=== PATIENT | female | born 1955 | race Caucasian/White ===

== ENCOUNTER 2019-11-10 05:01 | Emergency (ER) | payer OTHER ==
[~2019-11-10] VITALS: Ht 172.7 cm; Wt 97.7 kg
--- NOTE | 2019-11-10 05:04 | PHYS DOC ---
Adult General Chief Complaint Chief Complaint: ".. I woke up like I was going to vomit or have a diarrhea... on the way to bathroom .. I guess I passed out.. and hit my head on the right side.. I am still having feelings of nausea and or diarrhea...I didnt get my flu shot this year.. now I wish I had... HPI HPI Patient is a 64 year old female who presents with above hx and complaints of abdomen pain and nausea. Complaints of malaise. Patient awakened acutely with feelings of nausea and possible onset of diarrhea. Patient on the way to the bathroom had a syncopal episode with collapse striking the right side of face and head. Patient complaining of headache, neck pain, nausea, abdomen pain, and dizziness. Patient did not receive flu vaccination this season. Recent travel to [place] 1 week ago. Patient states she feels that if she is developing the flu. Patient denies other injury other than the contusions to the right side of face and head. Patient denies any specific ill contacts. Patient normally follows at [facility]. (JONATHAN MENDIOLA MD) Review of Systems Review of Systems Constitutional: Some subjective complaints of fever Eyes: Denies change in visual acuity, redness, or eye pain [] HENT: Denies nasal congestion or sore throat [] Respiratory: Denies cough or shortness of breath [] Cardiovascular: No additional information not addressed in HPI [] GI: Complaints of generalized abdominal pain, nausea,. Denies vomiting, bloody stools or diarrhea []. Patient states she does feel like she may have a diarrhea episode : Denies dysuria or hematuria [] Musculoskeletal: Denies back pain or joint pain [] Integument: Denies rash or skin lesions [] Neurologic: Complaints of headache. Denies focal weakness or sensory changes [] Pt. does complain of dizziness Endocrine: Denies polyuria or polydipsia [] All other systems were reviewed and found to be within normal limits, except as documented in this note. (JONATHAN MENDIOLA MD) Family History Family History Noncontributory to presentation (JONATHAN MENDIOLA MD) Current Medications Current Medications See nursing for home meds (JONATHAN MENDIOLA MD) Allergies Allergies Allergic to Tylenol and oxycodone (JONATHAN MENDIOLA MD) Physical Exam Physical Exam Constitutional: Moderate acute distress, non-toxic appearance. [] HENT: Normocephalic, contusions to the right side of face and head, bilateral external ears normal, oropharynx moist, no oral exudates, nose normal. [] Eyes: PERRLA, EOMI, conjunctiva normal, no discharge. Glasses Neck: Normal range of motion, mild upper neck tenderness, supple, no stridor. [] Cardiovascular:Heart rate regular rhythm, no murmur [] Lungs & Thorax: Bilateral breath sounds clear to auscultation [] Abdomen: Bowel sounds hyperactive, soft, generalized tenderness, no masses, no pulsatile masses. [] No specific area of rebound. Skin: Warm, dry, no erythema, no rash. [] Back: No tenderness, no CVA tenderness. [] Extremities: No tenderness, no cyanosis, no clubbing, ROM intact, no edema. [] Neurologic: Alert and oriented X 3, moves extremities on request, has distal sensory function, no focal deficits noted. [] Psychologic: Affect anxious, judgement normal, mood normal. [] (JONATHAN MENDIOLA MD) EKG EKG [] (JONATHAN MENDIOLA MD) Radiology/Procedures Radiology/Procedures [] (JONATHAN MENDIOLA MD) Impressions: PROCEDURE: CT ANGIOGRAPHY CHEST ABDOMEN Examination: CT ANGIOGRAPHY CHEST ABDOMEN History: Diarrhea, epigastric pain, syncope, dizziness Comparison/Correlation: 11/10/2019 two-view chest x-ray exam Findings: Axial images of the chest were obtained following IV contrast according to pulmonary arteriography protocol. Maximum intensity projection images were provided. Axial images of the abdomen were obtained following IV contrast. Sagittal and coronal reformatted images are provided. Patchy infiltrates are present throughout the right upper lobe. No pleural or pericardial effusion. No dense consolidation. No enlarged thoracic lymph nodes. Small hiatal hernia is present. Small hiatal hernia is present. Caudate lobe cyst measuring 1.2 cm diameter is present with no need for follow-up. Spleen, pancreas, adrenal glands, and kidneys are unremarkable. No ascites. No enlarged abdominal lymph nodes. Nonenlarged mesenteric lymph nodes are present. Severe disc space narrowing from L3 to L5 is present. Aortic morphology is unremarkable. Impression: No pulmonary arterial thromboembolic disease. Patchy infiltrates involving the right upper lobe. Small hiatal hernia. PQRS Compliance Statement: One or more of the following individualized dose reduction techniques were utilized for this examination: 1. Automated exposure control 2. Adjustment of the mA and/or kV according to patient size 3. Use of iterative reconstruction technique Electronically signed by: Andre Araujo MD (11/10/2019 9:07 AM) [id number] DICTATED AND SIGNED BY: ANDRE ARAUJO MD DATE: 11/10/19 09 CC: MARY JO MANZANO Jr., DO; JOSEF SIDDIQI DO; JONATHAN MENDIOLA MD ~ (MARY JO MANZANO Jr., DO) Course & Med Decision Making Course & Med Decision Making Pertinent Labs and Imaging studies reviewed. (See chart for details) Pt. endorses Dr. Parker at shift change-0800 hrs. he will make disposition Impression: 1. Abdomen Pain 2. Syncope 3. Head and Face contusion Rt side 4. Elevated D-dimer 1.52 5. Rt. Upper Lobe Infiltrate [] (JONATHAN MENDIOLA MD) Dragon Disclaimer Dragon Disclaimer This electronic medical record was generated, in whole or in part, using a voice recognition dictation system. (JONATHAN MENDIOLA MD) Departure Departure: Impression: Primary Impression: Vasovagal syncope Additional Impressions: Closed head injury Facial contusion Infiltrate of upper lobe of right lung present on imaging study Disposition: 01 HOME, SELF-CARE Condition: STABLE Referrals: JOSEF SIDDIQI DO (PCP) Patient Instructions: Facial or Scalp Contusion, Head Injury, Adult, Pneumonia, Adult, Syncope Scripts Amoxicillin/Potassium Clav (AUGMENTIN 875-125 TABLET) 1 Each Tablet 1 TAB PO BID for infection for 10 Days, #20 TAB 0 Refills Prov: MARY JO MANZANO Jr., DO 11/10/19 Dragon Disclaimer This chart was dictated in whole or in part using Voice Recognition software in a busy, high-work load, and often noisy Emergency Department environment. It may contain unintended and wholly unrecognized errors or omissions. (JONATHAN MENDIOLA MD) Problem Qualifiers Additional Impressions: Closed head injury Encounter type: initial encounter Qualified Codes: S09.90XA - Unspecified injury of head, initial encounter Facial contusion Encounter type: initial encounter Qualified Codes: S00.83XA - Contusion of other part of head, initial encounter JONATHAN MENDIOLA MD Nov 10, 2019 05:04 MARY JO MANZANO Jr., DO Nov 10, 2019 09:31
[2019-11-10] MEDS ORDERED: IV RINGERS SOLUTION,LACTATED 1,000 ML IV SCH (05:30)
[2019-11-10] MEDS ORDERED: ONDANSETRON PF 4 MG/2 ML VIAL. IVP ONE (05:45)
--- NOTE | 2019-11-10 05:52 | EKG ---
[address] [address] Test Date: 2019-11-10 Test Time: 05:47:11 Pat Name: JENNIFER LANCASTER Department: Room: Gender: F [employer]: : [id number] Requested By: JONATHAN MENDIOLA Order Number: [id number] Reading MD: Measurements Intervals [place] Rate: 98 P: 3 CT: 196 QRS: 14 QRSD: 82 T: 46 QT: 336 QTc: 431 Interpretive Statements SINUS RHYTHM INCOMPLETE RIGHT BUNDLE BRANCH BLOCK QRS(T) CONTOUR ABNORMALITY CONSIDER ANTEROSEPTAL MYOCARDIAL DAMAGE POSSIBLY ABNORMAL ECG RI6.01 No previous ECG available for comparison
[2019-11-10 06:13] LABS: BASO % 0 % (0-3); EOS # 0.1 x10^3/uL (0.0-0.7); EOS % 1 % (0-3); HEMATOCRIT 46.1 % (36.0-47.0); HEMOGLOBIN 15.5 g/dL (12.0-15.5); LYMPH # 0.6 x10^3/uL (1.0-4.8); LYMPH % 7 % (24-48); MEAN CORPUSCULAR HEMOGLOBIN 30 pg (25-35); MEAN CORPUSCULAR HGB CONC 34 g/dL (31-37); MEAN CORPUSCULAR VOLUME 90 fL (79-100); MONO # 0.5 x10^3/uL (0.0-1.1); MONO % 6 % (0-9); NEUT # 7.7 x10^3uL (1.8-7.7); NEUT % 87 % (31-73); PLATELET COUNT 195 x10^3/uL (140-400); RED BLOOD COUNT 5.12 x10^6/uL (3.50-5.40); RED CELL DISTRIBUTION WIDTH 13.4 % (11.5-14.5); WHITE BLOOD COUNT 8.9 x10^3/uL (4.0-11.0)
[2019-11-10 06:20] LABS: CREATININE 0.9 mg/dL (0.6-1.0); GFR 63.4; POTASSIUM 3.9 mmol/L (3.5-5.1)
[2019-11-10 06:29] VITALS: BP 129/77
[2019-11-10 06:32] LABS: ALBUMIN 3.3 g/dL (3.4-5.0); DIRECT BILIRUBIN 0.1 mg/dL (0.0-0.2); MAGNESIUM 1.8 mg/dL (1.8-2.4); TOTAL BILIRUBIN 0.3 mg/dL (0.2-1.0); TOTAL PROTEIN 6.5 g/dL (6.4-8.2)
--- NOTE | 2019-11-10 06:38 | RAD ---
CT HEAD AND CERVICAL SPINE WO Date: 11/10/2019 5:29 AM Clinical Indication: Syncope, fall, pain Comparison: None. Technique: 5 mm axial tomographic images were obtained of the head without contrast. These were viewed on brain and bone windows. Noncontrast CT of the cervical spine was performed. Sagittal and coronal reformats were performed and evaluated. One or more of the following dose reduction techniques were utilized: Automated exposure control (AEC), Adjustment of mA and/or kV according to patient size, Use of iterative reconstruction technique such as ASiR, CT scan done according to ALARA and image gently/image wisely HEAD FINDINGS: Mild generalized cerebral and cerebellar volume loss. Mild nonspecific periventricular hypoattenuation, most commonly seen with chronic small vessel ischemic disease. No intra- or extra-axial mass or fluid collection. No acute hemorrhage. The ventricles are normal in size, shape, and morphology. The guzman-white matter junction is normal. The basilar cisterns are patent. Moderate right maxillary sinus disease. The visualized portions of the orbits and globes are normal. The mastoid air cells are clear. No aggressive osseous lesion or fracture. CERVICAL SPINE FINDINGS: Straightening of the cervical lordosis. No acute fracture. No aggressive lytic or blastic osseous lesions. Mild multilevel degenerative disc space height loss. Multilevel mild spinal canal stenosis secondary to disc protrusions and marginal osteophytes. Multilevel mild neuroforaminal narrowing secondary to uncovertebral arthrosis. Multilevel mild facet arthrosis. The thyroid gland is normal. No cervical lymphadenopathy. Bilateral carotid atherosclerosis. The visualized aerodigestive tract is normal. The visualized portions of the lungs are clear. IMPRESSION: 1. No acute intracranial process. 2. No acute cervical spine fracture. Electronically signed by: Adam Meehan MD (11/10/2019 6:36 AM) [id number]
--- NOTE | 2019-11-10 06:39 | RAD ---
CHEST PA LATERAL, ABDOMEN SUPINE UPRIGHT INDICATION: Pain, fall, nausea. COMPARISON STUDY: None. FINDINGS: Lungs: Normal lung volume. No pulmonary mass or consolidation. The tracheobronchial tree and hilar structures are normal. Pleura: No pleural effusion or pneumothorax. Heart and Mediastinum: The cardiomediastinal silhouette is normal. The great vessels of the thorax are normal. Abdomen: Nonobstructive bowel gas pattern. No free air. Bones and Soft Tissues: Degenerative changes of the spine. IMPRESSION: 1. No focal airspace disease. 2. Nonobstructive bowel gas pattern. Electronically signed by: Adam Meehan MD (11/10/2019 6:37 AM) [id number]
[2019-11-10 07:19] LABS: SEDIMENTATION RATE 12 (0-25)
[2019-11-10] MEDS ORDERED: IOHEXOL 350 MG/ML 100 ML VIAL. IV ONE (08:15)
--- NOTE | 2019-11-10 09:10 | RAD ---
Examination: CT ANGIOGRAPHY CHEST ABDOMEN History: Diarrhea, epigastric pain, syncope, dizziness Comparison/Correlation: 11/10/2019 two-view chest x-ray exam Findings: Axial images of the chest were obtained following IV contrast according to pulmonary arteriography protocol. Maximum intensity projection images were provided. Axial images of the abdomen were obtained following IV contrast. Sagittal and coronal reformatted images are provided. Patchy infiltrates are present throughout the right upper lobe. No pleural or pericardial effusion. No dense consolidation. No enlarged thoracic lymph nodes. Small hiatal hernia is present. Small hiatal hernia is present. Caudate lobe cyst measuring 1.2 cm diameter is present with no need for follow-up. Spleen, pancreas, adrenal glands, and kidneys are unremarkable. No ascites. No enlarged abdominal lymph nodes. Nonenlarged mesenteric lymph nodes are present. Severe disc space narrowing from L3 to L5 is present. Aortic morphology is unremarkable. Impression: No pulmonary arterial thromboembolic disease. Patchy infiltrates involving the right upper lobe. Small hiatal hernia. PQRS Compliance Statement: One or more of the following individualized dose reduction techniques were utilized for this examination: 1. Automated exposure control 2. Adjustment of the mA and/or kV according to patient size 3. Use of iterative reconstruction technique Electronically signed by: Andre Malhotra MD (11/10/2019 9:07 AM) [id number]
[2019-11-10] MEDS ORDERED: AMOX1TAB61 PO (09:30)
[2019-11-10 09:51] LABS: BACTERIA,URINE 0 /HPF (0-FEW); BILIRUBIN,URINE NEG (NEG); CLARITY,URINE CLEAR; COLOR,URINE YELLOW; GLUCOSE,URINE NEG (NEG); NITRITE,URINE NEG (NEG); RBC,URINE OCC /HPF (0-2); SQUAMOUS EPITHELIAL CELL,UR FEW /LPF; WBC,URINE OCC /HPF (0-4)
[2019-11-10 10:27] LABS: AMPHETAMINE/METHAMPHETAMINE POS (NEG); BARBITURATES NEG (NEG); BENZODIAZEPINES NEG (NEG); CANNABINOIDS NEG (NEG); COCAINE NEG (NEG); METHADONE NEG (NEG); OPIATES NEG (NEG); PHENCYCLIDINE NEG (NEG)
== END 2019-11-10 09:58 | disposition home or self-care (01) ==
LOC: ER 05:01
DX: S00.83XA Contusion of other part of head, initial encounter (principal); R55 Syncope and collapse; R91.8 Other nonspecific abnormal finding of lung field; R79.1 Abnormal coagulation profile; W18.39XA Other fall on same level, initial encounter; Y93.89 Activity, other specified; Y92.89 Other specified places as the place of occurrence of the external cause; Y99.8 Other external cause status
CPT/HCPCS: 36415; 70450; 71046; 71275; 72125; 74019; 74175; 80048; 80076; 80307; 81001; 82550; 83690; 83735; 83880; 84443; 84484; 85025; 85379; 85651; 85730; 86705; 86709; 86803; 87340; 93005; 96361; 96374; 96375; 99285; J2405; J7120; Q9967